=== PATIENT | male | born 1975 | race Caucasian/White ===

== ENCOUNTER 2016-05-27 08:12 | Day surgery (SDC) | payer BC, OTHER ==
--- NOTE | 2016-05-19 19:42 | HP ---
PREOPERATIVE HISTORY AND PHYSICAL: DATE OF ADMISSION: 05/27/16 This patient is scheduled for same day surgery admission by Dr. Watson on 05/27/16. ATTENDING PHYSICIAN: Boy Watson MD (dictated by La Nena Anglin NP). CHIEF COMPLAINT: Gallstones. HISTORY OF PRESENT ILLNESS: The patient is a 40-year-old male referred to Dr. Wtason by nurse practitioner Jennifer Sweet for evaluation of gallstones and thickened gallbladder wall demonstrated on ultrasound, 10/08/15. The patient reports that he has had abdominal pain for several years which is episodic, occurring 3 to 4 times a year, usually lasting a couple of hours and he cannot associate it with any particular foods. It often presents in the evening. An ultrasound on 10/08/15 revealed multiple gallstones and mild thickening of the gallbladder wall, no pericholecystic fluid or ductal dilatation. The patient wished to hold off on surgery until May 2016 due to conflicts with work. His last episode of pain was in March 2016, described as "discomfort" lasting 1 to 2 hours after eating and spontaneous resolution. He has had pain between the shoulder blades as well. He denies nausea, vomiting, or diarrhea or fever or chills; he has not had dark urine or jaundice. Dr. Watson examined the patient and has recommended laparoscopic cholecystectomy. He described the nature of the surgical procedure, the rationale for the procedure, the relevant risks, benefits and alternatives and today I have reviewed the expected postoperative care and recovery. The patient has had a chance to ask questions and stated that he understands the information and is satisfied with the answers given to his questions. He will sign surgical consent on the day of surgery. PAST MEDICAL HISTORY: Significant for hypertension, obesity. PAST SURGICAL HISTORY: 1. Tonsillectomy and adenoidectomy in 1981. 2. Knee arthroscopy in 1995. 3. Laparoscopic appendectomy in 2011. MEDICATIONS: Lisinopril and he does not know the dosage, 1 tablet daily. ALLERGIES: No known drug allergies. FAMILY HISTORY: Mother is living and underwent recent cholecystectomy; father with a history of lung and brain cancer and hypertension. No known anesthesia complications, bleeding tendencies or clotting disorders in the family. SOCIAL HISTORY: He is and is employed at [email or web address]; he is a nonsmoker ; he drinks 12 to 15 alcoholic beverages per week. REVIEW OF SYSTEMS: He denies any recent constitutional symptoms; he denies any chest pain, pressure or palpitations. Denies any history of deep vein thrombosis or pulmonary embolism; is treated for hypertension by Dr. Everton Mcmillan ; denies any respiratory conditions or complaints and is a nonsmoker; denies any previous anesthesia complications; denies any gastrointestinal complaints other than as mentioned in the history of present illness; denies any bleeding tendencies and has never received a blood transfusion; denies any dysuria. Denies any musculoskeletal conditions or complaints. Denies any history of deep vein thrombosis or pulmonary embolism. PHYSICAL EXAMINATION GENERAL SURVEY: The patient is a 40-year-old male, obese, well developed in no acute distress. VITAL SIGNS: Height 73 inches, weight 299 pounds, body mass index 39.4. Blood pressure 140/90, pulse 72 and regular, respiratory rate 18, temperature 98.4 tympanic. HEENT: Benign. NECK: Supple. No cervical lymphadenopathy. BACK: No CVA tenderness. LUNGS: Breath sounds bilaterally clear and equal. HEART: Regular rate and rhythm. No murmurs or rubs appreciated. ABDOMEN: Obese. Active bowel sounds. Multiple well-healed scars. Nontender throughout. No obvious masses or organomegaly or evidence of ventral hernia. Negative Arnold sign. EXTREMITIES: Extremities are warm. No edema or skin ulcerations. GENITAL/RECTAL: Deferred. NEUROLOGIC: Alert and oriented x3. Steady gait. SKIN: Warm, dry and intact. IMPRESSION: Symptomatic cholelithiasis. PLAN: Same day surgery admission to Dr. Watson' service on 05/27/16, for laparoscopic cholecystectomy. CALIXTO ANGLIN NP CC: Boy Watson MD; Everton Mcmillan MD* [id number]/[facility] #: [id number] MTDD
[~2016-05-27 08:12] MED LIST: Buffered Lidocaine 1% SYR 3ML* 3 ML/SYR SYRINGE INTRADERM ONE; Ibuprofen TAB* 800 MG PO ONE; Metoclopramide TAB* 10 MG PO ONE; Sodium Citrate/Citric Acid* 15 ML UDC PO ONE
[2016-05-27] MEDS ORDERED: Metoclopramide TAB* 10 MG ONE (08:31)
[2016-05-27] MEDS ORDERED: Sodium Citrate/Citric Acid* 15 ML UDC ONE (08:31)
[2016-05-27] MEDS ORDERED: ceFAZolin 2 GM PREMIX (*) 2 GM/50 ML BAG IVPB ONE (08:31)
[2016-05-27] MEDS ORDERED: Ibuprofen TAB* 400 MG ONE (08:31)
[2016-05-27] MEDS ORDERED: ceFAZolin 1 GM in Dextrose (*) 1 GM/50 ML BAG IVPB ONE (09:35)
[2016-05-27] MEDS ORDERED: Bupivacaine 0.5% W/EPI SDV* 30 ML VIAL ONE (09:55)
[2016-05-27] MEDS ORDERED: fentaNYL* 50 MCG/ML 2 ML VIAL (100 MCG VIAL) ONE ×3 (11:12→13:46)
[2016-05-27] MEDS ORDERED: Atracurium* 10 MG/ML 10 ML VIAL ONE (11:12)
[2016-05-27] MEDS ORDERED: Propofol* 10 MG/ML 20 ML BTL IV PUSH ONE (11:13)
[2016-05-27] MEDS ORDERED: Lidocaine 2% PF * 5 ML VIAL ONE (11:13)
[2016-05-27] MEDS ORDERED: Succinylcholine* 20 MG/ML 10 ML VIAL ONE (11:13)
[2016-05-27] MEDS ORDERED: Dexamethasone IV* 4 MG/ML 1 ML (4 MG) ONE (11:13)
[2016-05-27] MEDS ORDERED: Ondansetron INJ* 2 MG/ML VIAL ONE (11:13)
[2016-05-27] MEDS ORDERED: DiMENhydriNATE IV* 50 MG/ML VIAL IV PUSH PRN (11:55)
[2016-05-27] MEDS ORDERED: Ketorolac INJ* 30 MG/ML 1 ML VIAL IV PRN (11:55)
[2016-05-27] MEDS ORDERED: HYDROmorphone INJ* 1 MG/ML CARPUJECT SYRINGE IV PRN (11:55)
[2016-05-27] MEDS ORDERED: HYDROcodone/ACETAMIN 5-325 MG* 1 TAB PO PRN (11:55)
[2016-05-27] MEDS ORDERED: Atropine 1MG/ML INJ* 1 ML VIAL ONE (12:30)
[2016-05-27] MEDS: fentaNYL* 50 MCG/ML 2 ML VIAL (100 MCG VIAL) IV PRN ×3 (13:16→13:49)
[2016-05-27] MEDS ORDERED: HYDROcodone/ACETAMIN 5-325 MG* 1 TAB ONE (13:37)
[2016-05-27 14:50] VITALS: BP 122/79
--- NOTE | 2016-05-28 12:58 | OP ---
DATE OF OPERATION: 05/27/16 [facility] DATE OF : 71 SURGEON: Boy Watson MD GROCERY CHECKER: LUCI Ricardo ANESTHESIOLOGIST: Brayan Flores MD ANESTHESIA: General endotracheal. PRE-OP DIAGNOSIS: Symptomatic gallstones. POST-OP DIAGNOSIS: Symptomatic gallstones. OPERATIVE PROCEDURE: Laparoscopic cholecystectomy. ESTIMATED BLOOD LOSS: Minimal. IV FLUIDS: Crystalloids. SPECIMEN: Gallbladder and contents. DRAINS: None. COMPLICATIONS: None. COUNTS: The instrument, needle and sponge counts were correct. DESCRIPTION OF PROCEDURE: The patient was brought to the operating room and placed on the table supine. Sequential compression devices were placed on both lower extremities. General anesthesia was administered. His abdomen was prepped and draped in the usual sterile fashion. He received appropriate intravenous antibiotics. A time-out was performed. Local anesthetic was infiltrated into the skin and soft tissue prior to making each incision. Entry to the abdomen was through a transumbilical incision using an open technique. After accessing the peritoneal cavity, carbon dioxide was insufflated through a pressure of 15 mmHg. Under direct visualization, a 12 mm trocar was placed in the subxiphoid position, two 5 mm trocars were placed in the right upper quadrant. The gallbladder was identified and appeared to have chronic inflammatory changes consistent with his preoperative diagnosis. The gallbladder was grasped at the fundus and retracted superiorly. There was noted to be a stone impacted in the infundibulum at the neck of the gallbladder. The stone was immobile from the spot despite attempts to crush it or to milk it back into the gallbladder. The dissection then proceeded by incising the peritoneum, then the gallbladder and both medial and lateral aspects of the infundibulum and identifying the cystic artery and dissecting this out. This was clipped and divided and then the dissection proceeded along the gallbladder using combination of blunt dissection and cautery to dissect out the infundibulum both medially and laterally down to the area where the stone was impacted in the neck. Ultimately, it was impossible to move the stone , it was decided to divide the gallbladder at that side and cautery was used to score the gallbladder wall directly over the stone and then the stone was able to be extracted. Subsequently, the mucosa of the gallbladder was able to be inspected and dissection was able to be performed completing the view needed to divide the remaining portion of the gallbladder wall. The gallbladder site was then clipped with a large clip and the stone was subsequently retrieved with 12 mm port site. There was noted to be clear bile within the gallbladder. There was noted to be bilious fluid that came back from the cystic duct stump. The stump was elevated and a large clip was applied to occlude it. The gallbladder was then freed from the attachments to the liver bed using the cautery and blunt dissection staying in an avascular plane. Once the gallbladder was freed , it was placed into an endoscopic retrieval bag. The gallbladder was full of large stones. The gallbladder was retrieved through the umbilical port site, but this had to be enlarged in order to open the specimen bag, exteriorized the gallbladder and then removed the stones, so that the gallbladder could be removed. After doing so, the pneumoperitoneum was reestablished and the laparoscopic views revealed clips to be intact. Hemostasis was excellent. The ports were then removed under direct visualization and carbon dioxide was released. The umbilical site was closed with 0 Polysorb in a [id number] fashion to approximate the fascia. Skin incisions were closed with 4-0 Monocryl in subcuticular fashion. Steri-Strips were applied. The patient tolerated the procedure well, was extubated and transferred to the recovery room in stable condition. CC: Everton Mcmillan MD * [id number]/[facility] #: [id number] DAYAN
== END 2016-05-27 14:58 | disposition home or self-care (01) ==
LOC: OR 08:12
PROVIDERS: ATTEND Surgery
DX: K80.12 Calculus of gallbladder with acute and chronic cholecystitis without obstruction (principal); I10 Essential (primary) hypertension; E66.01 Morbid (severe) obesity due to excess calories
CPT/HCPCS: 88304; A9270-GY; J0330; J0461; J0690; J1100; J2405; J2704; J3010

== ENCOUNTER 2016-11-02 19:13 | Emergency (ER) | payer BC ==
--- NOTE | 2016-11-02 20:42 | RAD ---
Indication: Right knee pain 4 views of the right knee demonstrates no fracture. Degenerative changes of the patellofemoral joint. No fractures identified. IMPRESSION: No fracture of the right knee is noted.
[2016-11-02] MEDS ORDERED: Lisinopril TAB* 10 MG PO ONE (21:00)
[2016-11-02 21:04] VITALS: BP 197/111
--- NOTE | 2016-11-02 21:26 | UC ---
Ofe Gallardo Alfonso, scribed for Giuliano Mejia MD on 11/02/16 at 1955 . Knee Pain HPI - HPI Summary HPI Summary: This patient is a 41 year old M presenting to [facility] accompanied by female with a chief complaint of right knee pain since one week ago. The CC is described as pressure and tightness. The patient rates the pain 2/10 in severity. Symptoms aggravated by ambulation and alleviated by nothing. Patient reports right knee swelling. In 1995 he had an injury to that knee. He stands often for work. He denies recent known trauma. PMHx of HTN. Patients medications reviewed this visit. - History of Current Complaint Chief Complaint: UCLowerExtremity Stated Complaint: KNEE SWELLING,PAIN Time Seen by Provider: 11/02/16 19:43 Hx Obtained From: Patient Onset/Duration: Sudden Onset, Lasting Weeks - 1 Severity Initially: Moderate Severity Currently: Moderate Pain Intensity: 2 Pain Scale Used: 0-10 Numeric Aggravating Factor(s): Movement Alleviating Factor(s): Nothing Associated Signs And Symptoms: Positive: Swelling - Allergies/Home Medications Allergies/Adverse Reactions: Allergies Allergy/AdvReac Type Severity Reaction Status Date / Time Penicillins [PCN] Allergy Dizziness Verified 11/02/16 19:45 PMH/Surg Hx/FS Hx/Imm Hx Cardiovascular History: Hypertension - Surgical History Surgical History: Yes Surgery Procedure, Year, and Place: APP-2012. RIGHT KNEE SURGERY-1995. ADENOIDS REMOVED-1981 - Family History Known Family History: Positive: Cardiac Disease, Diabetes, Other - Brain and lung cancer. - Social History Alcohol Use: Weekly Alcohol Amount: 12 DRINKS PER WEEK Substance Use Type: None Smoking Status (MU): Former Smoker Amount Used/How Often: 1-1.5 PPD X 18 YEARS Have You Smoked in the Last Year: No When Did the Patient Quit Smoking/Using Tobacco: 4-5 YEARS Review of Systems Constitutional: Negative Musculoskeletal: Other: - Positive right knee swelling and pain. All Other Systems Reviewed And Are Negative: Yes Physical Exam Triage Information Reviewed: Yes Appearance: Well-Appearing, No Pain Distress Vital Signs: Initial Vital Signs Temp 99.2 F 11/02/16 19:40 Pulse 108 11/02/16 19:40 Resp 18 11/02/16 19:40 BP 192/96 11/02/16 19:40 Pulse Ox 100 11/02/16 19:40 Vital Signs Reviewed: Yes Eye Exam: Normal ENT: Positive: Normal ENT inspection Neck: Positive: Supple, Nontender Respiratory: Positive: Other: - CTA, Cardiovascular: Positive: RRR Abdomen Description: Positive: Nontender, Soft Bowel Sounds: Positive: Present Musculoskeletal: Positive: Other: - Effusion of right knee. Mildly positive Garrick Test. Negative Lico Test sign. Patella non tender to movement. Knee is non tender to palpation. Full ROM. Neurological: Positive: Alert Psychological: Positive: Age Appropriate Behavior Skin: Positive: Other - warm, color reflects adequate perfusion, dry Diagnostics - Laboratory Diagnostic Studies Completed/Ordered: Knee X-Ray reveals, per radiologist, No fracture of the right knee is noted. Knee Pain Course/Dx - Course Course Of Treatment: MEDICATIONS REVIEWED. RESULTS DISCUSSED WITH PATIENT. HIGH BP HERE IN CLINIC. HE IS ASYMPTOMATIC. CLINIC DOES NOT HAVE LISINOPRIL. I PRESCRIBED HIS ZESTORETIC (LISINOPRIL 20MG/HCTZ 12.5MG) WHICH HE WILL START TOMORROW. HE WILL F/U WITH HIS PMD ON 11/05/16. - Differential Dx/Diagnosis Provider Diagnoses: RIGHT SWOLLEN KNEE. HYPERTENSION. Discharge - Discharge Plan Condition: Stable Disposition: HOME Prescriptions: Lisinopril/HCTZ 20/12.5(NF) [Zestoretic 20/12.5(NF)] 1 tab PO QAM #30 tab Patient Education Materials: Swollen Knee Joint (ED), Knee Pain (ED), Hypertension (ED) Referrals: [facility] [Outside] Everton Mcmillan MD [Primary Care Provider] - Additional Instructions: FOLLOW UP WITH YOUR DOCTOR THIS WEEK FOR YOUR KNEE AND HYPERTENSION. GET RECHECKED FOR ANY WORSENING OF YOUR CONDITION OR QUESTIONS OR CONCERNS. The documentation as recorded by the Ofe de dios Alfonso accurately reflects the service I personally performed and the decisions made by me, Giuliano Mejia MD.
== END 2016-11-02 21:09 | disposition home or self-care (01) ==
LOC: UCEAST 19:13
DX: M25.461 Effusion, right knee (principal); M25.561 Pain in right knee; I10 Essential (primary) hypertension; Z88.0 Allergy status to penicillin; Z87.891 Personal history of nicotine dependence
CPT/HCPCS: 99211; A9270-GY; G0463